=== PATIENT | female | born 1965 ===

== ENCOUNTER 2016-12-15 14:11 | Emergency (ER) | payer MEDICAID, OTHER ==
[2016-12-15 14:11] VITALS: BMI 41.8
[2016-12-15] MEDS ORDERED: Naproxen 550 mg Tab PO STA (16:26)
[2016-12-15] MEDS ORDERED: Naproxen 550 mg Tab PO ONE (16:38)
--- NOTE | 2016-12-15 16:48 | C.PDOC ---
History Of Present Illness 51 year old female presents to the ED for evaluation of right shoulder pain which began a couple of weeks ago. Patient notes her symptoms resolved shortly and then returned. Patient notes her pain radiates down her right arm and is worse with movement. She denies chest pain, difficulty breathing, neck pain, or direct trauma/injury to the affected area. Time Seen by Provider: 12/15/16 16:11 Chief Complaint (Nursing): Upper Extremity Problem/Injury History Per: Patient History/Exam Limitations: no limitations Onset/Duration Of Symptoms: Days (around 2 weeks ) Current Symptoms Are (Timing): Still Present Quality: "Pain" Exacerbating Factor(s): Movement Additional History Per: Patient Past Medical History Reviewed: Historical Data, Nursing Documentation, Vital Signs Vital Signs: Last Vital Signs Temp 97.6 F 12/15/16 17:17 Pulse 66 12/15/16 17:17 Resp 20 12/15/16 17:17 BP 118/82 12/15/16 17:17 Pulse Ox 100 12/15/16 17:58 - Medical History PMH: HTN Surgical History: No Surg Hx - [facility] Procedures CLOSURE SKIN & SUBCUTANEOUS NEC (11/04/14) TETANUS TOXOID ADMINIST (11/04/14) Family History: States: Unknown Family Hx - Social History Hx Alcohol Use: No Hx Substance Use: No - Immunization History Hx Tetanus Toxoid Vaccination: No Review Of Systems Cardiovascular: Negative for: Chest Pain Respiratory: Negative for: Cough, Shortness of Breath, SOB with Excertion, Wheezing Musculoskeletal: Positive for: Shoulder Pain (right), Arm Pain (right). Negative for: Neck Pain Physical Exam - Physical Exam Appears: Non-toxic, No Acute Distress Skin: Normal Color, Warm, Dry Head: Atraumatic, Normacephalic Eye(s): bilateral: Normal Inspection, EOMI Nose: Normal Oral Mucosa: Moist Neck: Normal ROM, Supple Chest: Symmetrical, No Deformity Cardiovascular: Rhythm Regular Respiratory: Normal Breath Sounds Extremity: No Normal ROM (decreased secondary to pain ), Tenderness (point, to anterior aspect of right shoulder ), Capillary Refill (less than 2 seconds ), No Deformity, No Swelling Neurological/Psych: Oriented x3, Normal Speech, Normal Cognition, Normal Motor, Normal Sensation Gait: Steady ED Course And Treatment O2 Sat by Pulse Oximetry: 100 (on RA) Pulse Ox Interpretation: Normal - Other Rad right shoulder XR X-Ray: Interpreted by Me, Viewed By Me, Read By Radiologist Interpretation: PROCEDURE: Radiographs of the Right Shoulder. HISTORY: pain. COMPARISON: None available. FINDINGS: BONES: No acute displaced fracture. The distal clavicle and underlying ribs appear intact. JOINTS: No acute dislocation. Numerous calcifications adjacent to the humeral head consistent with calcific tendinitis. SOFT TISSUES: Soft tissues appear unremarkable. No evidence of radiopaque foreign body. IMPRESSION: Calcific tendinitis. Progress Note: Right shoulder XR ordered and reviewed. Patient received Naproxen PO. Shoulder sling applied by sound technician and checked by me. On reasessment , patient is resting comfortably, showing no signs of distress and reports an improvement in her symptoms. Patient is stable for discharge and is advised to follow up with orthopedic care within 1-3 days for further evaluation. Disposition - Disposition Referrals: Glenn Chavis MD [Staff Provider] - Disposition: HOME/ ROUTINE Disposition Time: 16:46 Condition: STABLE Additional Instructions: Advise rest, ice, elevation and NSAIDs.~ Information given regarding preliminary nature of x-ray reading, with possibility that a fracture not initially detected in the ED may be found on final reading, with subsequent notification.~ Patient was therefore told that close follow up care for further evaluation is mandatory and further imaging may be necessary. Follow up with orthopedic in 1-2 days Prescriptions: Naproxen [Naprosyn] 1 tab PO BID PRN #20 tab PRN Reason: Pain Instructions: Calcific Tendinitis (ED) Forms: [facility] (Turkish) - Clinical Impression Clinical Impression: Calcific tendinitis - PA / SUPERVISOR FLESHING / Resident Statement MD/DO has reviewed & agrees with the documentation as recorded. - Scribe Statement The provider has reviewed the documentation as recorded by the Scribe (Katerin Naidu) All medical record entries made by the Scribe were at my direction and personally dictated by me. I have reviewed the chart and agree that the record accurately reflects my personal performance of the history, physical exam, medical decision making, and the department course for this patient. I have also personally directed, reviewed, and agree with the discharge instructions and disposition.
--- NOTE | 2016-12-15 17:04 | RAD ---
PROCEDURE: Radiographs of the Right Shoulder HISTORY: pain COMPARISON: None available. FINDINGS: BONES: No acute displaced fracture. The distal clavicle and underlying ribs appear intact. JOINTS: No acute dislocation. Numerous calcifications adjacent to the humeral head consistent with calcific tendinitis. SOFT TISSUES: Soft tissues appear unremarkable. No evidence of radiopaque foreign body. IMPRESSION: Calcific tendinitis.
[2016-12-15 17:21] VITALS: BP 118/82; PULSE 66; RESP 20; TEMP 97.6
[2016-12-15 17:47] VITALS: O2SAT 100
== END 2016-12-15 17:21 | disposition home or self-care (01) ==
LOC: C.ER 14:11
DX: M75.31 Calcific tendinitis of right shoulder (principal)

== ENCOUNTER 2016-12-16 16:41 | Emergency (ER) | payer MEDICAID ==
[2016-12-16 16:42] VITALS: BMI 41.8
[2016-12-16 17:27] VITALS: TEMP 98.5
--- NOTE | 2016-12-16 18:46 | C.PDOC ---
History Of Present Illness 51 y/o female presents to ED with complaints of right shoulder pain 3 weeks. Patient states she was diagnosed with calcific tendinitis yesterday and has been taking Naprosyn with no relief. Patient has appointment with ortho next week. Denies change in sensation, chest pain, sob, trauma or any other complaints at this time. Time Seen by Provider: 12/16/16 18:10 Chief Complaint (Nursing): Upper Extremity Problem/Injury History Per: Patient History/Exam Limitations: no limitations Onset/Duration Of Symptoms: Days Current Symptoms Are (Timing): Still Present Quality: "Pain" Past Medical History Reviewed: Historical Data, Nursing Documentation, Vital Signs Vital Signs: Last Vital Signs Temp 98.5 F 12/16/16 17:25 Pulse 75 12/16/16 19:16 Resp 18 12/16/16 19:16 BP 124/78 12/16/16 19:16 Pulse Ox 99 12/16/16 21:08 - Medical History PMH: HTN Surgical History: No Surg Hx - [facility] Procedures CLOSURE SKIN & SUBCUTANEOUS NEC (11/04/14) TETANUS TOXOID ADMINIST (11/04/14) Family History: States: No Known Family Hx - Social History Hx Alcohol Use: No Hx Substance Use: No - Immunization History Hx Tetanus Toxoid Vaccination: No Review Of Systems Except As Marked, All Systems Reviewed And Found Negative. Musculoskeletal: Positive for: Shoulder Pain. Negative for: Hand Pain Skin: Negative for: Rash Neurological: Negative for: Weakness, Numbness Physical Exam - Physical Exam Appears: Non-toxic, No Acute Distress Skin: Normal Color, Warm, Dry, No Rash Head: Atraumatic, Normacephalic Eye(s): bilateral: Normal Inspection, EOMI Nose: Normal Oral Mucosa: Moist Neck: Normal ROM, Supple Chest: Symmetrical Cardiovascular: Rhythm Regular Respiratory: Normal Breath Sounds, No Accessory Muscle Use Extremity: No Normal ROM (decreased secondary to pain), Tenderness (Point to right anterior shoulder ), Capillary Refill (<2 seconds), No Deformity Pulses: Left Radial: Normal, Right Radial: Normal Neurological/Psych: Oriented x3, Normal Motor, Normal Sensation ED Course And Treatment O2 Sat by Pulse Oximetry: 99 (RA) Pulse Ox Interpretation: Normal Progress Note: On reassessment, patient is resting comfortably, and is in no acute distress. Patient was instructed to follow up with physician/clinic in 1- 2 days for further evaluation. Reassessment Condition: Improved Disposition - Disposition Disposition: HOME/ ROUTINE Disposition Time: 18:45 Condition: STABLE Additional Instructions: Vaya a evans mdico o la clnica en 1-3 hugo sin falta, para mas evaluacin. Bond los medicamentos diane indicado. Volver a la zane de emergencia en cualquier momento si los sntomas persisten o empeoran. Prescriptions: traMADol [Ultram] 50 mg PO Q8 #20 tab Instructions: Calcific Tendinitis (ED) Forms: [facility] (Greek) Print Language: ALBANIAN - Clinical Impression Clinical Impression: Acute pain of right shoulder - PA / HEALTH COORDINATOR / Resident Statement MD/DO has reviewed & agrees with the documentation as recorded. - Scribe Statement The provider has reviewed the documentation as recorded by the Scribe Asiya Infante All medical record entries made by the Scribe were at my direction and personally dictated by me. I have reviewed the chart and agree that the record accurately reflects my personal performance of the history, physical exam, medical decision making, and the department course for this patient. I have also personally directed, reviewed, and agree with the discharge instructions and disposition.
[2016-12-16 19:17] VITALS: BP 124/78; PULSE 75; RESP 18
[2016-12-16 21:04] VITALS: O2SAT 99
== END 2016-12-16 19:17 | disposition home or self-care (01) ==
LOC: C.ER 16:41
DX: M25.511 Pain in right shoulder (principal)

== ENCOUNTER 2018-04-27 09:46 | Outpatient (CLI) | payer OTHER | END 2018-04-27 09:47 | disposition home or self-care (01) | LOC: C.RADIC 09:46 | DX: M54.5 Low back pain (principal); M25.511 Pain in right shoulder ==

== ENCOUNTER 2018-05-20 12:35 | Emergency (ER) | payer OTHER ==
[2018-05-20 12:49] VITALS: BMI 39.4
[2018-05-20 12:57] VITALS: TEMP 97.5
[2018-05-20] MEDS ORDERED: Iohexol 240 (50 ml) PO STA (14:06)
[2018-05-20 14:27] LABS: BASO # 0.1 K/uL (0.0-0.2); BASO % 0.5 % (0.0-2.0); EOS # 0.1 K/uL (0.0-0.7); EOS % 0.7 % (0.0-4.0); HEMOGLOBIN 12.1 g/dL (11.0-16.0); LYMPH # 0.9 K/uL (1.0-4.3); LYMPH % 6.9 % (20.0-40.0); MEAN CELL VOLUME 72.3 fL (81.0-99.0); MEAN CORPUSCULAR HEMOGLOBIN 23.2 pg (27.0-31.0); MEAN CORPUSCULAR HGB CONC 32.1 g/dL (33.0-37.0); MEAN PLATELET VOLUME 7.1 fL (7.2-11.7); MONO # 0.7 K/uL (0.0-0.8); MONO % 5.5 % (0.0-10.0); NEUT # 11.3 K/uL (1.8-7.0); NEUT % 86.4 % (50.0-75.0); PLATELET COUNT 444 K/uL (130-400); RBC 5.22 Mil/uL (3.80-5.20); RED CELL DISTRIBUTION WIDTH 18.5 % (11.5-14.5); WHITE BLOOD COUNT 13.1 K/uL (4.8-10.8)
[2018-05-20] MEDS ORDERED: Iohexol 240 (50 ml) ONE (14:33)
--- NOTE | 2018-05-20 14:51 | C.PDOC ---
History Of Present Illness 52 y/o female with a PMHx of depression, diabetes, hypertension, and asthma, presents to the ED for complaints of nausea, vomiting, diarrhea, and abdominal pain since last night. Pain is localized over the upper abdomen and described as stabbing. Patient recently completed a course of antibiotics for a URI. No fever or chills. Time Seen by Provider: 05/20/18 13:50 Chief Complaint (Nursing): GI Problem History Per: Patient History/Exam Limitations: no limitations Onset/Duration Of Symptoms: Days (x 1) Current Symptoms Are (Timing): Still Present Location Of Pain/Discomfort: Epigastric Quality Of Discomfort: Stabbing Associated Symptoms: Nausea, Vomiting, Diarrhea Past Medical History Reviewed: Historical Data, Nursing Documentation, Vital Signs Vital Signs: Last Vital Signs Temp 97.5 F L 05/20/18 12:48 Pulse 94 H 05/20/18 12:48 Resp 18 05/20/18 12:48 BP 124/81 05/20/18 12:48 Pulse Ox 97 05/20/18 12:48 - Medical History PMH: Asthma, Depression, Diabetes, HTN, Migraine Other PMH: Pituitary tumor - [facility] Procedures CLOSURE SKIN & SUBCUTANEOUS NEC (11/04/14) TETANUS TOXOID ADMINIST (11/04/14) Family History: States: Unknown Family Hx - Social History Hx Alcohol Use: No Hx Substance Use: No - Immunization History Hx Tetanus Toxoid Vaccination: No Hx Influenza Vaccination: No Hx Pneumococcal Vaccination: No Review Of Systems Constitutional: Negative for: Fever, Chills Cardiovascular: Negative for: Chest Pain, Palpitations Respiratory: Negative for: Shortness of Breath Gastrointestinal: Positive for: Nausea, Vomiting, Abdominal Pain, Diarrhea. Negative for: Melena, Hematochezia Musculoskeletal: Negative for: Back Pain Neurological: Negative for: Weakness Physical Exam - Physical Exam Appears: Non-toxic, No Acute Distress Skin: No Rash Head: Atraumatic, Normacephalic Eye(s): bilateral: PERRL, EOMI Oral Mucosa: Dry (Mildly) Neck: Supple Chest: No Tenderness Cardiovascular: Rhythm Regular, No Murmur Respiratory: Normal Breath Sounds, No Accessory Muscle Use, No Rhonchi, No Wheezing Gastrointestinal/Abdominal: Soft, Tenderness (Epigastric), No Guarding, No Rebound Back: No CVA Tenderness Extremity: Normal ROM, No Calf Tenderness, No Swelling Pulses: Left Dorsalis Pedis: Normal, Right Dorsalis Pedis: Normal Neurological/Psych: Oriented x3, Normal Speech, Normal Cognition ED Course And Treatment - Laboratory Results Result Diagrams: 05/20/18 14:23 05/20/18 14:23 ECG: Interpreted By Me ECG Rhythm: Sinus Rhythm Interpretation Of ECG: Minimal voltage criteria for LVH, may be normal variant. Borderline ECG. Rate From EC O2 Sat by Pulse Oximetry: 97 (RA) Pulse Ox Interpretation: Normal - CT Scan/US CT Abd/Pelvis Other Rad Studies (CT/US): Read By Radiologist, Radiology Report Reviewed CT/US Interpretation: IMPRESSION: Small to moderate hiatal hernia and evidence of gastroesophageal reflux. Heterogeneous appearance of the uterus. Suspected left ovarian cyst. Pelvic ultrasound may be considered further evaluation if indicated. Under distended thick-walled urinary bladder. Recommend correlation with urinalysis. Additional findings as above. Medical Decision Making Medical Decision Making: Plan: Labs ordered. Administered 4 mg IV Zofran and 20 mg IV Pepcid. Will obtain CT Abdomen/Pelvis with PO& IV contrast. 1829 pt appears well, tolerating po fluids, no further episodes of vomiting in ed. abdomen re-examined, soft, nd. nt ct results discusessed with patient. will d/c with zofran, pepcid and pmd and gi f/u. . Disposition Counseled Patient/Family Regarding: Studies Performed, Diagnosis, Need For Followup, Rx Given - Disposition Referrals: Debby Marvin MD [Staff Provider] - Disposition: HOME/ ROUTINE Disposition Time: 18:32 Condition: IMPROVED Additional Instructions: Medications sent to [facility] Drink increased fluids, and slowly add food such as toast, crackers, rice, banana. Avoid spicy food. avoid citrus food such as lemon, tomatoes. Take Pepcid as prescribed. Use ondansetron if you feel nauseous, up to three times a day. Follow up with Dr Marvin in 1-2 days. Recommend follow up with Dr Gay (stomach doctor) and your desk clerk as well. Prescriptions: Famotidine [Pepcid] 20 mg PO DAILY #14 tab Ondansetron ODT [Zofran ODT] 4 mg PO TID #12 odt Instructions: Viral Gastroenteritis, Adult (DC) Forms: [facility] (Sinhala), General Discharge Instructions - Clinical Impression Clinical Impression: Gastroenteritis - PA / DINKEY MOTOR OPERATOR / Resident Statement MD/DO has reviewed & agrees with the documentation as recorded. - Scribe Statement The provider has reviewed the documentation as recorded by the Scribsamy Canas All medical record entries made by the Siennaibe were at my direction and personally dictated by me. I have reviewed the chart and agree that the record accurately reflects my personal performance of the history, physical exam, medical decision making, and the department course for this patient. I have also personally directed, reviewed, and agree with the discharge instructions and disposition.
[2018-05-20 14:59] LABS: SQUAMOUS EPITHIAL 3 /hpf (0-5); URINE BILIRUBIN NEGATIVE (NEGATIVE); URINE BLOOD NEGATIVE (NEGATIVE); URINE CLARITY Clear (Clear); URINE COLOR Yellow (YELLOW); URINE GLUCOSE (UA) NORMAL (Normal); URINE LEUKOCYTE ESTERASE NEG Leu/uL (Negative); URINE PROTEIN NEGATIVE (NEGATIVE)
[2018-05-20 15:08] LABS: LYMPHOCYTE 11 % (20-40); MONOCYTE 3 % (0-10); NEUTROPHIL 86 % (50-75); PLATELET ESTIMATE NORMAL (NORMAL); TOTAL CELLS COUNTED 100
[2018-05-20 15:10] LABS: ANISOCYTOSIS SLIGHT; TARGET CELLS SLIGHT
[2018-05-20 15:16] LABS: HYPOCHROMIC SLIGHT; POLYCHROMIC SLIGHT
[2018-05-20 15:24] LABS: ALB/GLOB RATIO 1.2 (1.0-2.1); ALBUMIN 4.3 g/dL (3.5-5.0); ALT/SGPT 39 U/L (9-52); AST/SGOT 40 U/L (14-36); BLOOD UREA NITROGEN 29 mg/dL (7-17); CALCIUM 8.9 mg/dl (8.6-10.4); GFR NON-AFRICAN AMERICAN 58; LIPASE 58 U/L (23-300)
[2018-05-20 17:48] VITALS: BP 106/70; PULSE 92; RESP 15
--- NOTE | 2018-05-20 18:06 | CT ---
PROCEDURE: CT Abdomen and Pelvis with oral and IV contrast. HISTORY: abd pain COMPARISON: None available TECHNIQUE: Contiguous axial images of the abdomen and pelvis. Oral and IV contrast was administered. Coronal and Sagittal reformats generated and reviewed. Contrast dose: 100 mL Omnipaque 300 IV Radiation dose: Total exam DLP = 1093.77 mGy-cm. This CT exam was performed using one or more of the following dose reduction techniques: Automated exposure control, adjustment of the mA and/or kV according to patient size, and/or use of iterative reconstruction technique. FINDINGS: LOWER THORAX: No visible consolidation, pleural effusion, or pneumothorax. Small to moderate hiatal hernia and evidence of gastroesophageal reflux. LIVER: Unremarkable. GALLBLADDER AND BILE DUCTS: Unremarkable. PANCREAS: Unremarkable. SPLEEN: 5 mm probable splenule. Otherwise unremarkable. ADRENALS: Unremarkable. KIDNEYS AND URETERS: The kidneys enhance symmetrically. No hydronephrosis or obstructing renal calculus. Evidence of bilateral renal cortical thinning/scarring. BLADDER: Thick-walled under distended urinary bladder. REPRODUCTIVE: Heterogeneous appearance of the uterus. Suspected left ovarian cyst. APPENDIX: The appendix appears within normal limits of caliber. No secondary signs of acute appendicitis. BOWEL: The stomach is nondistended. The bowel loops appear within normal limits of caliber without evidence of intestinal obstruction. PERITONEUM: No significant free fluid. No definite free air. LYMPH NODES: No bulky lymphadenopathy identified. VASCULATURE: No aortic aneurysm. No atherosclerotic calcification or mural plaque present. BONES: Degenerative changes. Mild sclerosis involving the iliac portions of bilateral sacroiliac joints. OTHER FINDINGS: None. IMPRESSION: Small to moderate hiatal hernia and evidence of gastroesophageal reflux. Heterogeneous appearance of the uterus. Suspected left ovarian cyst. Pelvic ultrasound may be considered further evaluation if indicated. Under distended thick-walled urinary bladder. Recommend correlation with urinalysis. Additional findings as above.
[2018-05-20 18:17] VITALS: O2SAT 97
--- NOTE | 2018-05-24 22:33 | CARD ---
APPROVED REPORT Date of service: 05/20/2018 EKG Measurement Heart [id number] <Conclusion> Normal sinus rhythm Minimal voltage criteria for LVH, may be normal variant Borderline ECG
== END 2018-05-20 18:48 | disposition home or self-care (01) ==
LOC: C.ER 12:35
DX: K52.9 Noninfective gastroenteritis and colitis, unspecified (principal)
CPT/HCPCS: 74177; 80053; 81001; 83690; 85025; 93005; 96374; 96375; 99284; J2405; Q9966